=== PATIENT | female | born 1945 | race Caucasian/White ===

== ENCOUNTER 2016-07-20 15:10 | Outpatient (CLI) | payer MEDICARE ==
--- NOTE | 2016-07-21 08:56 | XRAY Report ---
THREE-VIEW LUMBAR SPINE: 07/20/2016 CLINICAL INDICATION: Bilateral sciatica. FINDINGS: AP, lateral, coned-down views of the lumbar spine demonstrate anterior wedge compression d eformities of T11, L1, and L3, with approximately 50% anterior height loss of T11, 20% anterior heigh t loss of L1, and 40% anterior height loss of L3. Degenerative disc and facet disease is present. T here is partial sacralization of L5, with bilateral pseudoarthrosis formations. Surgical clips from cholecystectomy are noted. IMPRESSION: MODERATE DEGENERATIVE CHANGES. MULTILEVEL COMPRESSION DEFORMITIES. JOB #: [id number] EXT JOB #:[id number]
== END 2016-07-20 15:11 | disposition home or self-care (01) ==
LOC: DI.S 15:10
PROVIDERS: ATTEND Nurse Practitioner Family
DX: M51.16 Intervertebral disc disorders with radiculopathy, lumbar region (principal); M47.816 Spondylosis without myelopathy or radiculopathy, lumbar region; M43.8X6 Other specified deforming dorsopathies, lumbar region
CPT/HCPCS: 72100

== ENCOUNTER 2016-08-12 13:32 | Outpatient (CLI) | payer MEDICARE | END 2016-08-12 13:33 | disposition home or self-care (01) | DX: E87.8 Other disorders of electrolyte and fluid balance, not elsewhere classified (principal); E78.5 Hyperlipidemia, unspecified ==

== ENCOUNTER 2016-10-17 11:32 | Outpatient (CLI) | payer MEDICARE | END 2016-10-17 11:33 | DX: K92.1 Melena (principal); E78.5 Hyperlipidemia, unspecified ==

== ENCOUNTER 2016-11-09 11:08 | Outpatient (CLI) | payer MEDICARE ==
--- NOTE | 2016-11-11 13:53 | Mammography Report ---
DIGITAL SCREENING MAMMOGRAM: 11/09/2016 CLINICAL INDICATION: A 71-year-old for screening. COMPARISON: 06/2015, 06/2014, 08/2011, 07/2011, 07/2010, 07/2009. TECHNIQUE: Routine CC and MLO projections were obtained of the breasts. FINDINGS: Parenchymal tissue within the breasts is predominantly fatty replaced. There are no domina nt masses, suspicious microcalcifications, or secondary signs of malignancy. In comparison to the pre vious studies, there are no significant changes. IMPRESSION: NO MAMMOGRAPHIC EVIDENCE OF MALIGNANCY. NO SIGNIFICANT INTERVAL CHANGES. RECOMMENDATION: Screening mammography is recommended annually. BI-RADS category 1 - negative. STANDARD QUALIFYING STATEMENTS 1. This examination was reviewed with the aid of Computed-Aided Detection (CAD). 2. A negative or benign imaging report should not delay biopsy if clinically suspicious findings are present. Consider surgical consultation if warranted. More than 5% of cancers are not identified by i maging. 3. Dense breasts may obscure an underlying neoplasm. JOB #: [id number] EXT JOB #:[id number]
== END 2016-11-09 11:09 | disposition home or self-care (01) ==
LOC: DI.S 11:08
PROVIDERS: ATTEND Nurse Practitioner Family
DX: Z12.31 Encounter for screening mammogram for malignant neoplasm of breast (principal)
CPT/HCPCS: 77067

== ENCOUNTER 2016-12-01 13:51 | Outpatient (CLI) | payer MEDICARE ==
[2016-12-01 17:31] LABS: BILIRUBIN,URINE NEGATIVE (NEGATIVE); PH,URINE 7.5 PH (5.0-7.5)
[2016-12-01 17:40] LABS: UR CULTURE IF IND INDICATED
== END 2016-12-01 13:52 | disposition home or self-care (01) ==
LOC: LAB.R 13:51
PROVIDERS: ATTEND Nurse Practitioner Family
DX: R31.9 Hematuria, unspecified (principal)
CPT/HCPCS: 81001; 87077; 87086

== ENCOUNTER 2017-03-29 10:15 | Outpatient (CLI) | payer MEDICARE ==
--- NOTE | 2017-03-29 12:01 | Ultrasound Report ---
ULTRASOUND PALPABLE ABNORMALITY RIGHT AXILLA: 03/29/2017 CLINICAL INDICATION: Palpable abnormality. TECHNIQUE: Real-time scanning was performed with financial service representative static images obtained. FINDINGS: Ultrasound of the palpable abnormality identified by the patient was performed. At this s ite, there is a subcutaneous lipoma, measuring 6.3 x 5.8 x 1.5 cm. No sonographically suspicious fin dings are seen. IMPRESSION: SUBCUTANEOUS LIPOMA ACCOUNTING FOR THE PALPABLE ABNORMALITY. JOB #: [id number] EXT JOB #:[id number]
== END 2017-03-29 10:16 | disposition home or self-care (01) ==
LOC: DI 10:15
PROVIDERS: ATTEND Nurse Practitioner Family
DX: D17.1 Benign lipomatous neoplasm of skin and subcutaneous tissue of trunk (principal)
CPT/HCPCS: 76642

== ENCOUNTER 2017-12-18 10:58 | Outpatient (CLI) | payer MEDICARE ==
[2017-12-18 17:28] LABS: BASOPHILS % (AUTO) 0.7 %; EOSINOPHILS # (AUTO) 0.2 10^3/uL (0.0-0.7); EOSINOPHILS % (AUTO) 2.4 %; HGB - HEMOGLOBIN 14.7 g/dL (12.0-16.0); LYMPHOCYTES % (AUTO) 27.6 %; MEAN CORPUSCULAR HEMOGLOBIN 32.2 pg (27.0-31.0); MEAN CORPUSCULAR HGB CONC 33.4 g/dL (32.0-36.0); MEAN CORPUSCULAR VOLUME 96.6 fL (81.0-99.0); MEAN PLATELET VOLUME 7.9 fL (7.9-10.8); MONOCYTES # (AUTO) 0.6 10^3/uL (0.0-1.0); MONOCYTES % (AUTO) 9.1 %; NEUTROPHILS # (AUTO) 4.3 10^3/uL (1.5-6.6); NEUTROPHILS % (AUTO) 60.2 %; PLT - PLATELET COUNT 367 10^3/uL (130-450); RED BLOOD COUNT 4.56 10^6/uL (4.20-5.40); RED CELL DISTRIBUTION WIDTH 13.7 % (12.0-15.0); WHITE BLOOD COUNT 7.1 x10^3/uL (4.8-10.8)
[2017-12-18 17:45] LABS: ALBUMIN 3.6 g/dL (3.2-5.5); ALBUMIN/GLOBULIN RATIO 1.3 (1.0-2.2); ALKALINE PHOSPHATASE 64 IU/L (42-121); ALT ALANINE AMINOTRANSFERASE 31 IU/L (10-60); AST ASPARTATE AMINOTRANSFERASE 27 IU/L (10-42); BILIRUBIN,TOTAL 0.5 mg/dL (0.2-1.0); BUN - BLOOD UREA NITROGEN 12 mg/dL (6-20); CALCIUM 8.6 mg/dL (8.5-10.3); CARBON DIOXIDE - CO2 26 mmol/L (21-32); CHLORIDE 105 mmol/L (101-111); CHOL/HDL RATIO 2.4 (<4.4); CHOLESTEROL 143 mg/dL; CREATININE 0.7 mg/dL (0.4-1.0); GFR - MDRD 82 (>89); GLUCOSE 94 mg/dL (70-100); HDL CHOLESTEROL 59 mg/dL; LDL CHOLESTEROL,CALCULATED 69 mg/dL; LDL/HDL RATIO 1.2 (<4.4); SODIUM 136 mmol/L (135-145); TOTAL PROTEIN 6.3 g/dL (6.7-8.2); VLDL CHOLESTEROL 15 mg/dL
== END 2017-12-18 10:59 | disposition home or self-care (01) ==
LOC: LAB.S 10:58
PROVIDERS: ATTEND Nurse Practitioner Family
DX: Z13.228 Encounter for screening for other metabolic disorders (principal); E78.5 Hyperlipidemia, unspecified; Z13.29 Encounter for screening for other suspected endocrine disorder
CPT/HCPCS: 36415; 80053; 80061; 83721; 84443; 85025

== ENCOUNTER 2018-11-14 08:00 | Outpatient (CLI) | payer MEDICARE | END 2018-11-14 23:59 | disposition home or self-care (01) | LOC: LAB.R 08:00 | PROVIDERS: ATTEND Physician Assistant Medical | DX: N39.0 Urinary tract infection, site not specified (principal) | CPT/HCPCS: 87086 ==

== ENCOUNTER 2018-11-23 08:00 | Outpatient (CLI) | payer MEDICARE ==
[2018-11-23 17:37] LABS: BASOPHILS % (AUTO) 0.8 %; EOSINOPHILS # (AUTO) 0.3 10^3/uL (0.0-0.7); HGB - HEMOGLOBIN 14.4 g/dL (12.0-16.0); LYMPHOCYTES # (AUTO) 1.7 10^3/uL (1.5-3.5); LYMPHOCYTES % (AUTO) 29.7 %; MEAN CORPUSCULAR HEMOGLOBIN 31.8 pg (27.0-31.0); MEAN CORPUSCULAR HGB CONC 33.4 g/dL (32.0-36.0); MEAN CORPUSCULAR VOLUME 95.2 fL (81.0-99.0); MEAN PLATELET VOLUME 7.8 fL (7.9-10.8); MONOCYTES # (AUTO) 0.6 10^3/uL (0.0-1.0); NEUTROPHILS # (AUTO) 3.1 10^3/uL (1.5-6.6); NEUTROPHILS % (AUTO) 54.5 %; PLT - PLATELET COUNT 369 10^3/uL (130-450); RED BLOOD COUNT 4.53 10^6/uL (4.20-5.40); RED CELL DISTRIBUTION WIDTH 13.4 % (12.0-15.0); WHITE BLOOD COUNT 5.8 x10^3/uL (4.8-10.8)
[2018-11-23 18:06] LABS: ALBUMIN 3.7 g/dL (3.2-5.5); ALBUMIN/GLOBULIN RATIO 1.5 (1.0-2.2); ALKALINE PHOSPHATASE 70 IU/L (42-121); ALT ALANINE AMINOTRANSFERASE 28 IU/L (10-60); AST ASPARTATE AMINOTRANSFERASE 27 IU/L (10-42); BILIRUBIN,TOTAL 0.6 mg/dL (0.2-1.0); BUN - BLOOD UREA NITROGEN 16 mg/dL (6-20); CALCIUM 8.6 mg/dL (8.5-10.3); CARBON DIOXIDE - CO2 22 mmol/L (21-32); CHLORIDE 106 mmol/L (101-111); CHOL/HDL RATIO 2.7 (<4.4); CHOLESTEROL 133 mg/dL; CREATININE 0.7 mg/dL (0.4-1.0); GFR - MDRD 82 (>89); GLUCOSE 94 mg/dL (70-100); HDL CHOLESTEROL 50 mg/dL; LDL CHOLESTEROL,CALCULATED 71 mg/dL; LDL/HDL RATIO 1.4 (<4.4); SODIUM 136 mmol/L (135-145); TOTAL PROTEIN 6.2 g/dL (6.7-8.2); VLDL CHOLESTEROL 12 mg/dL
[2018-11-23 19:47] LABS: HB2 TOTAL 15.4 g/dL; HEMOGLOBIN A1C 0.6 g/dL; HEMOGLOBIN A1C % 5.7 % (4.6-6.2)
== END 2018-11-23 08:01 | disposition home or self-care (01) ==
LOC: LAB.F 08:00
PROVIDERS: ATTEND Physician Assistant Medical
DX: E78.5 Hyperlipidemia, unspecified (principal); Z51.81 Encounter for therapeutic drug level monitoring; R73.01 Impaired fasting glucose
CPT/HCPCS: 36415; 80053; 80061; 81599; 83036; 83721; 85025

== ENCOUNTER 2018-11-28 16:11 | Outpatient (CLI) | payer MEDICARE | END 2018-11-28 23:59 | disposition home or self-care (01) | LOC: LAB.R 16:11 | PROVIDERS: ATTEND Physician Assistant Medical | DX: R31.9 Hematuria, unspecified (principal); N39.0 Urinary tract infection, site not specified | CPT/HCPCS: 87086; 87181 ==

== ENCOUNTER 2019-01-14 09:52 | Outpatient (CLI) | payer MEDICARE ==
--- NOTE | 2019-01-15 08:57 | Mammography Report ---
Reason: SCREENING MAMMO Procedure Date: 01/14/2019 Accession Number: [id number] / [id number] Procedure: MGS - Screening Mammo Dig Bilat CPT Code: FULL RESULT: EXAM: Screening Mammo Dig Bilat DATE: 01/14/2019 10:16 AM CLINICAL HISTORY: Screening encounter. History of early menses. TECHNIQUE: (B) - Bilateral CC and MLO views were obtained. COMPARISON: 11/09/2016 through 08/04/2011. PARENCHYMAL PATTERN: (A) - The breast(s) demonstrate(s) scattered fibroglandular densities. FINDINGS: There are no suspicious masses, calcifications, or areas of distortion. IMPRESSION: Negative examination. BI-RADS category 1. RECOMMENDATION: (ANNUAL) - Recommend routine annual screening mammography. BI-RADS CATEGORY: (1) - Negative. STANDARD QUALIFYING STATEMENTS: 1. This examination was reviewed with the aid of Computer-Aided Detection (CAD). 2. A negative or benign imaging report should not preclude biopsy if clinically suspicious findings are present. 3. Dense breasts may obscure an underlying neoplasm. 4. This examination was reviewed without the aid of 3D breast imaging (tomosynthesis).
== END 2019-01-14 09:53 | disposition home or self-care (01) ==
LOC: DI.S 09:52
PROVIDERS: ATTEND Physician Assistant Medical
DX: Z12.31 Encounter for screening mammogram for malignant neoplasm of breast (principal)
CPT/HCPCS: 77067

== ENCOUNTER 2019-06-17 13:59 | Outpatient (CLI) | payer MEDICARE | END 2019-06-17 14:00 | disposition home or self-care (01) | LOC: LAB.S 13:59 | PROVIDERS: ATTEND Physician Assistant Medical | DX: Z53.9 Procedure and treatment not carried out, unspecified reason (principal) ==

== ENCOUNTER 2019-06-18 08:00 | Outpatient (CLI) | payer MEDICARE ==
[2019-06-18 18:19] LABS: HB2 TOTAL 14.6 g/dL; HEMOGLOBIN A1C 0.61 g/dL
== END 2019-06-18 23:59 | disposition home or self-care (01) ==
LOC: LAB.S 08:00
PROVIDERS: ATTEND Physician Assistant Medical
DX: R73.01 Impaired fasting glucose (principal)
CPT/HCPCS: 36415; 83036

== ENCOUNTER 2019-07-04 08:00 | Outpatient (CLI) | payer MEDICARE | END 2019-07-04 08:01 | disposition home or self-care (01) | LOC: LAB 08:00 | PROVIDERS: ATTEND Physician Assistant Medical | DX: Z12.11 Encounter for screening for malignant neoplasm of colon (principal) | CPT/HCPCS: 82274 ==

== ENCOUNTER 2020-03-03 09:06 | Outpatient (CLI) | payer MEDICARE ==
[2020-03-03 15:09] LABS: BASOPHILS # (AUTO) 0.1 10^3/uL (0.0-0.1); BASOPHILS % (AUTO) 0.9 %; EOSINOPHILS # (AUTO) 0.1 10^3/uL (0.0-0.7); EOSINOPHILS % (AUTO) 1.6 %; HGB - HEMOGLOBIN 14.2 g/dL (12.0-16.0); LYMPHOCYTES # (AUTO) 1.8 10^3/uL (1.5-3.5); LYMPHOCYTES % (AUTO) 24.1 %; MEAN CORPUSCULAR HEMOGLOBIN 31.6 pg (27.0-31.0); MEAN CORPUSCULAR HGB CONC 32.1 g/dL (32.0-36.0); MEAN CORPUSCULAR VOLUME 98.7 fL (81.0-99.0); MEAN PLATELET VOLUME 9.6 fL (7.9-10.8); MONOCYTES # (AUTO) 0.7 10^3/uL (0.0-1.0); MONOCYTES % (AUTO) 8.8 %; NEUTROPHILS # (AUTO) 4.8 10^3/uL (1.5-6.6); NEUTROPHILS % (AUTO) 64.2 %; PLT - PLATELET COUNT 372 10^3/uL (130-450); RED BLOOD COUNT 4.49 10^6/uL (4.20-5.40); RED CELL DISTRIBUTION WIDTH 13.2 % (12.0-15.0); WHITE BLOOD COUNT 7.5 x10^3/uL (4.8-10.8)
[2020-03-03 15:46] LABS: ALBUMIN 3.7 g/dL (3.2-5.5); ALBUMIN/GLOBULIN RATIO 1.7 (1.0-2.2); ALKALINE PHOSPHATASE 70 IU/L (42-121); ALT ALANINE AMINOTRANSFERASE 31 IU/L (10-60); AST ASPARTATE AMINOTRANSFERASE 27 IU/L (10-42); BILIRUBIN,TOTAL 0.6 mg/dL (0.2-1.0); BUN - BLOOD UREA NITROGEN 17 mg/dL (6-20); CALCIUM 8.5 mg/dL (8.5-10.3); CARBON DIOXIDE - CO2 27 mmol/L (21-32); CHLORIDE 107 mmol/L (101-111); CHOL/HDL RATIO 2.2 (<4.4); CHOLESTEROL 139 mg/dL; CREATININE 0.7 mg/dL (0.4-1.0); GLUCOSE 100 mg/dL (70-100); HDL CHOLESTEROL 62 mg/dL; LDL CHOLESTEROL,CALCULATED 66 mg/dL; LDL/HDL RATIO 1.1 (<4.4); SODIUM 140 mmol/L (135-145); TOTAL PROTEIN 5.9 g/dL (6.7-8.2); VLDL CHOLESTEROL 11 mg/dL
== END 2020-03-03 09:07 | disposition home or self-care (01) ==
LOC: LAB.S 09:06
PROVIDERS: ATTEND Physician Assistant
DX: Z00.00 Encounter for general adult medical examination without abnormal findings (principal); Z12.11 Encounter for screening for malignant neoplasm of colon; Z13.1 Encounter for screening for diabetes mellitus; E78.5 Hyperlipidemia, unspecified; F41.8 Other specified anxiety disorders; Z65.8 Other specified problems related to psychosocial circumstances
CPT/HCPCS: 36415; 80053; 80061; 83721; 84443; 85025

== ENCOUNTER 2020-03-04 08:00 | Outpatient (CLI) | payer MEDICARE | END 2020-03-04 23:59 | disposition home or self-care (01) | LOC: LAB.R 08:00 | PROVIDERS: ATTEND Physician Assistant | DX: Z00.00 Encounter for general adult medical examination without abnormal findings (principal); Z12.11 Encounter for screening for malignant neoplasm of colon | CPT/HCPCS: 82274 ==

== ENCOUNTER 2020-12-02 10:55 | Outpatient (CLI) | payer MEDICARE ==
--- NOTE | 2020-12-03 14:23 | Mammography Report ---
BILATERAL DIGITAL SCREENING MAMMOGRAM 3D/2D: 12/02/2020 CLINICAL: Routine screening. Comparison is made to exams dated: 01/14/2019 mammogram, 11/09/2016 mammogram, 07/07/2015 mammogram, and 06/24/2014 mammogram - [facility]. There are scattered fibroglandular elements in both breasts. No significant masses, calcifications, or other findings are seen in either breast. There has been no significant interval change. IMPRESSION: NEGATIVE There is no mammographic evidence of malignancy. A 1 year screening mammogram is recommended. This exam was interpreted at Station ID: [id number]. NOTE: For mammograms, a report in lay terms will be sent to the patient. Approximately 15% of breast malignancies will not be visualized mammographically. In the management of a palpable breast mass, a negative mammogram must not discourage biopsy of a clinically suspicious lesion. Electronically Signed By: Ryan Gomez M.D. slc/penrad:12/02/2020 15:24:54 ACR BI-RADS Category 1: Negative 3341F PARENCHYMAL PATTERN: (A) - The breast(s) demonstrate(s) scattered fibroglandular densities. BI-RADS CATEGORY: (1) - 1 RECOMMENDATION: (ANNUAL) - Recommend routine annual screening mammography. [id number] 1 year screening LATERALITY: (B)
== END 2020-12-02 10:56 | disposition home or self-care (01) ==
LOC: DI.S 10:55
PROVIDERS: ATTEND Nurse Practitioner Family
DX: Z12.31 Encounter for screening mammogram for malignant neoplasm of breast (principal)

== ENCOUNTER 2022-01-05 10:51 | Outpatient (CLI) | payer MEDICARE ==
--- NOTE | 2022-01-06 09:36 | Mammography Report ---
BILATERAL DIGITAL SCREENING MAMMOGRAM 3D/2D: 01/05/2022 CLINICAL: Routine screening. Comparison is made to exams dated: 12/02/2020 mammogram, 01/14/2019 mammogram, 11/09/2016 mammogram, and 07/07/2015 mammogram - [facility]. There are scattered fibroglandular elements in both breasts. No significant masses, calcifications, or other findings are seen in either breast. There has been no significant interval change. IMPRESSION: NEGATIVE There is no mammographic evidence of malignancy. A 1 year screening mammogram is recommended. Based on the Tyrer Cuzick model (a risk assessment model) the patients lifetime risk is 2.5% and her 10 year risk is 2.5%. According to the ACR, ACS, and NCCN guidelines, an annual breast MRI exam stef g with mammogram is recommended if the patients lifetime risk is 20% or greater. This exam was interpreted at Station ID: [id number]. NOTE: For mammograms, a report in lay terms will be sent to the patient. Approximately 15% of breast malignancies will not be visualized mammographically. In the management of a palpable breast mass, a negative mammogram must not discourage biopsy of a clinically suspicious lesion. Electronically Signed By: Ryan steinberg/penrad:01/05/2022 15:25:54 ACR BI-RADS Category 1: Negative 3341F PARENCHYMAL PATTERN: (A) - The breast(s) demonstrate(s) scattered fibroglandular densities. BI-RADS CATEGORY: (1) - 1 RECOMMENDATION: (ANNUAL) - Recommend routine annual screening mammography. [id number] 1 year screening LATERALITY: (B)
== END 2022-01-05 10:52 | disposition home or self-care (01) ==
LOC: DI.S 10:51
PROVIDERS: ATTEND Nurse Practitioner Family
DX: Z12.31 Encounter for screening mammogram for malignant neoplasm of breast (principal)

== ENCOUNTER 2022-03-08 06:24 | Day surgery (SDC) | payer MEDICARE ==
[2022-03-08] MEDS ORDERED: LACTATED RINGERS 1,000 ML IV ONE ×2 (06:28→07:57)
--- NOTE | 2022-03-08 07:02 | ANESTHESIA ---
Pre-Anesthesia VS, & Labs - Diagnosis positive fit test - Procedure colonoscopy Vital Signs: Temp Pulse Resp BP Pulse Ox O2 Flow Rate 36.6 C 91 16 146/79 H 97 0 03/08/22 06:46 03/08/22 06:46 03/08/22 06:46 03/08/22 06:46 03/08/22 06:46 03/08/22 06:46 Height: 4 ft 11 in Weight (kg): 61.7 kg Body Mass Index: 27.4 BMI Classification: Overweight - NPO >8 hours - Is Patient ?: No - Lab Results Lab results reviewed: Yes Home Medications and Allergies Home Medications: Ambulatory Orders Atorvastatin [Lipitor] 1 tab PO DAILY 03/07/22 Loratadine [Claritin] 1 tab PO PRN PRN 03/07/22 Triazolam 1 tab PO DAILY 03/07/22 busPIRone [Buspar] 1 tab PO DAILY 03/07/22 Atorvastatin [Lipitor] 1 tab PO DAILY 03/07/22 Loratadine [Claritin] 1 tab PO PRN PRN 03/07/22 Triazolam 1 tab PO DAILY 03/07/22 busPIRone [Buspar] 1 tab PO DAILY 03/07/22 Allergies/Adverse Reactions: Allergies Allergy/AdvReac Type Severity Reaction Status Date / Time No Known Drug Allergies Allergy Verified 03/07/22 11:24 Anes History & Medical History - Anesthetic History Anesthesia Complications: reports: No previous complications Family history of Anesthesia Complications: Denies Family history of Malignant Hyperthermia: Denies - Medical History Cardiovascular: reports: None Pulmonary: reports: Asthma Gastrointestinal: reports: None Urinary: reports: Chronic bladder infection Musculoskeletal: reports: None Endocrine/Autoimmune: reports: None Skin: reports: None - Surgical History General: reports: Cholecystectomy Gynecologic: reports: Hysterectomy, Oophrectomy Exam General: Alert, Oriented x3, Cooperative Mouth Openin Fingerbreadth Neck Mobility: Normal Mallampati classification: II Respiratory: Lungs clear Cardiovascular: Regular rate Neurological: Normal speech Mental/Cognitive Status: Alert/Oriented X3, Normal for patient Cognitive Status: Within normal limits Plan Anesthesia Type: Total IV Consent for Procedure(s) Verified and Reviewed: Yes Code Status: Attempt Resuscitation ASA classification: 2-Mild systemic disease Is this case an emergency?: No
[2022-03-08] MEDS ORDERED: PROPOFOL 500 MG/50 ML 500 MG/50 ML VIAL ONE (07:06)
--- NOTE | 2022-03-08 08:07 | ANESTHESIA POST OP EVALUATION ---
Anesthesia Post Eval - Post Anesthesia Eval Vitals: Last Vital Signs Temp 37.5 C 03/08/22 07:57 Pulse 75 03/08/22 08:03 Resp 20 03/08/22 08:03 BP 111/63 03/08/22 08:03 Pulse Ox 100 03/08/22 08:03 O2 Flow Rate 0 03/08/22 06:46 CV Function Including HR & BP: Stable Pain Control: Satisfactory Nausea & Vomiting: Negative Mental Status: Baseline Respiratory Status: Airway Patent Hydration Status: Satisfactory Anesthesia Complications: None
[2022-03-08 08:20] VITALS: BP 127/65
== END 2022-03-08 06:25 | disposition home or self-care (01) ==
LOC: SDS 06:24
PROVIDERS: ATTEND Surgery
DX: R19.5 Other fecal abnormalities (principal); K59.00 Constipation, unspecified; K57.31 Diverticulosis of large intestine without perforation or abscess with bleeding; K64.8 Other hemorrhoids; K64.4 Residual hemorrhoidal skin tags; J45.909 Unspecified asthma, uncomplicated
CPT/HCPCS: 45378; J7120

== ENCOUNTER 2022-07-13 12:28 | Outpatient (CLI) | payer MEDICARE ==
--- NOTE | 2022-07-13 16:49 | Ultrasound Report ---
PROCEDURE: Pelvic Limited or F/U INDICATIONS: GROIN MASS TECHNIQUE: Real-time transabdominal scanning was performed of the inguinal region, with image documentation. COMPARISON: None. FINDINGS: There is a left inguinal region fascial defect measuring 2.1 x 1.7 cm. Fat protrudes through this def ect at rest. During Valsalva maneuver, loop of bowel protrudes through the defect, easily reducible w ith relaxation. IMPRESSION: Fat and bowel containing, reducible, left inguinal hernia. Reviewed by: Lizzette Hawkins MD on 07/13/2022 4:48 PM PST Approved by: Lizzette Hawkins MD on 07/13/2022 4:48 PM PST Station ID: [id number]
== END 2022-07-13 12:29 | disposition home or self-care (01) ==
LOC: DI 12:28
PROVIDERS: ATTEND Nurse Practitioner Family
DX: K40.90 Unilateral inguinal hernia, without obstruction or gangrene, not specified as recurrent (principal)

== ENCOUNTER 2023-02-09 09:52 | Day surgery (SDC) | payer MEDICARE, MEDICAID ==
[~2023-02-09 09:52] MED LIST: BUPIVACAINE 0.25% PF 30 ML VIAL ONE
[2023-02-09] MEDS ORDERED: ceFAZolin 2 GM VIAL ONE (09:58)
[2023-02-09] MEDS ORDERED: LACTATED RINGERS 1,000 ML IV ONE ×2 (10:18→13:25)
[2023-02-09] MEDS ORDERED: fentaNYL 100 MCG/2 ML VIAL IVP PRN (10:38)
[2023-02-09] MEDS ORDERED: ePHEDrine 50 MG/ML VIAL IVP PRN (10:38)
[2023-02-09] MEDS ORDERED: NALOXONE 0.4 MG/ML VIAL IVP PRN (10:38)
[2023-02-09] MEDS ORDERED: ATROPINE ABBOJECT 1 MG/10 ML SYRINGE IVP PRN (10:38)
[2023-02-09] MEDS ORDERED: ONDANSETRON 4 MG/2 ML VIAL IVP PRN (10:38)
[2023-02-09] MEDS ORDERED: HYDROmorphone 0.5 MG/0.5 ML SYRINGE IVP PRN (10:38)
--- NOTE | 2023-02-09 10:38 | ANESTHESIA ---
Pre-Anesthesia VS, & Labs - Diagnosis L inguinal hernia - Procedure Open l inguinal hernia repair Vital Signs: Temp Pulse Resp BP Pulse Ox O2 Flow Rate 35.8 C L 84 11 L 153/73 H 96 0 02/09/23 10:19 02/09/23 10:19 02/09/23 10:19 02/09/23 10:19 02/09/23 10:19 02/09/23 10:19 Height: 4 ft 11 in Weight (kg): 64 kg Body Mass Index: 28.5 BMI Classification: Overweight - NPO >8 hours - Is Patient ?: No - Lab Results Lab results reviewed: Yes Home Medications and Allergies Home Medications: Ambulatory Orders Albuterol Sulf [Ventolin Hfa Inhaler] 2 puffs PO Q4HR PRN 02/06/23 Atorvastatin Calcium 40 mg PO DAILY 02/06/23 Fluticasone [Flonase] 1 sprays KHURRAM BID PRN 02/06/23 Sumatriptan Succinate [Imitrex] 100 mg PO DAILY PRN 02/06/23 Loratadine [Claritin] 10 mg PO DAILY 02/08/23 Sennosides [Senna] 8.6 mg PO PRN PRN 02/08/23 Sertraline [Zoloft] 50 mg PO DAILY 02/08/23 busPIRone [Buspar] 7.5 mg PO DAILY 03/07/22 Albuterol Sulf [Ventolin Hfa Inhaler] 2 puffs PO Q4HR PRN 02/06/23 Atorvastatin Calcium 40 mg PO DAILY 02/06/23 Fluticasone [Flonase] 1 sprays KHURRAM BID PRN 02/06/23 Sumatriptan Succinate [Imitrex] 100 mg PO DAILY PRN 02/06/23 Loratadine [Claritin] 10 mg PO DAILY 02/08/23 Sennosides [Senna] 8.6 mg PO PRN PRN 02/08/23 Sertraline [Zoloft] 50 mg PO DAILY 02/08/23 Allergies/Adverse Reactions: Allergies Allergy/AdvReac Type Severity Reaction Status Date / Time No Known Drug Allergies Allergy Verified 02/09/23 10:24 Anes History & Medical History - Anesthetic History Anesthesia Complications: reports: Post-Operative Nausea/Vomiting Family history of Anesthesia Complications: Denies Family history of Malignant Hyperthermia: Denies - Medical History Cardiovascular: reports: High cholesterol Pulmonary: reports: Asthma Gastrointestinal: reports: None Urinary: reports: Chronic bladder infection Musculoskeletal: reports: None Endocrine/Autoimmune: reports: None Skin: reports: None Psychosocial: reports: Cannabis - Surgical History General: reports: Cholecystectomy, Other Gynecologic: reports: section, Hysterectomy Exam General: Alert, Oriented x3, Cooperative Dental: WNL Mouth Openin Fingerbreadth Neck Mobility: Normal Mallampati classification: II Thyromental Distance: 4-6 cm Respiratory: Lungs clear Cardiovascular: Regular rate Plan Anesthesia Type: General, MAC Consent for Procedure(s) Verified and Reviewed: Yes Code Status: Attempt Resuscitation ASA classification: 2-Mild systemic disease Is this case an emergency?: No
[2023-02-09] MEDS ORDERED: LACTATED RINGERS 1,000 ML IV SCH (11:00)
[2023-02-09] MEDS ORDERED: LIDOCAINE-MPF 1% 30 ML VIAL ONE (11:26)
[2023-02-09] MEDS ORDERED: PROPOFOL 500 MG/50 ML 500 MG/50 ML VIAL ONE (11:26)
[2023-02-09] MEDS ORDERED: fentaNYL 100 MCG/2 ML VIAL ONE (11:26)
--- NOTE | 2023-02-09 11:44 | HISTORY & PHYSICAL EXAMINATION ---
Chief Complaint - Chief Complaint Chief Complaint: left groin bulge History of Present Illness - History Obtained From Records Reviewed: yes History obtained from: pt Exam Limitations: none - History of Present Illness HPI Comment/Other: left inguinal hernia. getting worse History - Past Medical History Cardiovascular: reports: High cholesterol Respiratory: reports: Asthma Endocrine/Autoimmune: reports: None GI: reports: None : reports: Chronic bladder infection HEENT: reports: Chronic sinusitis Psych: reports: Depression Musculoskeletal: reports: None Derm: reports: None MRSA Hx?: No - Past Surgical History General: reports: Cholecystectomy, Other /[employer]: reports: section, Hysterectomy Meds/Allgy - Home Medications Home Medications: Ambulatory Orders Medication Instructions Recorded Confirmed busPIRone [Buspar] 7.5 mg PO DAILY 03/07/22 03/07/22 Albuterol Sulf [Ventolin Hfa 2 puffs PO Q4HR PRN 02/06/23 02/06/23 Inhaler] Atorvastatin Calcium 40 mg PO DAILY 02/06/23 02/06/23 Fluticasone [Flonase] 1 sprays KHURRAM BID PRN 02/06/23 02/06/23 Sumatriptan Succinate [Imitrex] 100 mg PO DAILY PRN 02/06/23 02/06/23 Loratadine [Claritin] 10 mg PO DAILY 02/08/23 02/08/23 Sennosides [Senna] 8.6 mg PO PRN PRN 02/08/23 02/08/23 Sertraline [Zoloft] 50 mg PO DAILY 02/08/23 02/08/23 - Allergies Allergies/Adverse Reactions: Allergies Allergy/AdvReac Type Severity Reaction Status Date / Time No Known Drug Allergies Allergy Verified 02/09/23 10:24 Review of Systems - Other Findings Other Findings: 10 pt ros as above otherwise unremarkable Exam - Vital Signs Vital Signs: Vital Signs x48h Temp Pulse Resp BP Pulse Ox O2 Flow Rate 02/09/23 10:19 35.8 C L 84 11 L 153/73 H 96 0 - Physical Exam General Appearance: positive: No acute distress, Alert Eyes Bilateral: positive: PERRL, EOMI ENT: positive: No signs of dehydration Neck: positive: No JVD, Trachea midline Respiratory: positive: No respiratory distress Cardiovascular: positive: Regular rate & rhythm Abdomen: positive: Other (left inguinal hernia present) Neurologic/Psychiatric: positive: Oriented x3 Conclusion/Plan - Problem List (1) Inguinal hernia Conclusion/Plan: plan open repair with mesh. no femoral hernia and risk developing one is very low parq held and consent obtained - Lab Results Lab results reviewed: Yes
[2023-02-09] MEDS ORDERED: BUPIVACAINE 0.25% PF 30 ML VIAL SUBQ ONE ×2 (12:36)
[2023-02-09] MEDS ORDERED: LIDOCAINE 1% 50 ML MDV SUBQ ONE (12:36)
[2023-02-09] MEDS ORDERED: PROPOFOL 200 MG/20 ML VIAL IVP ONE (13:00)
[2023-02-09] MEDS ORDERED: ONDANSETRON 4 MG/2 ML VIAL ONE (13:10)
[2023-02-09] MEDS ORDERED: HYDROcod/ACETAM 5/325 MG TABLET PO PRN (13:32)
[2023-02-09 13:50] VITALS: BP 151/64
[2023-02-09 14:10] VITALS: O2SAT 98
--- NOTE | 2023-02-09 15:54 | ANESTHESIA POST OP EVALUATION ---
Anesthesia Post Eval - Post Anesthesia Eval Vitals: Last Vital Signs Temp 36.0 C L 02/09/23 13:25 Pulse 69 02/09/23 14:00 Resp 18 02/09/23 14:00 BP 151/64 H 02/09/23 14:00 Pulse Ox 98 02/09/23 14:00 O2 Flow Rate 0 02/09/23 10:19 CV Function Including HR & BP: Stable Pain Control: Satisfactory Nausea & Vomiting: Negative Mental Status: Baseline Respiratory Status: Airway Patent Hydration Status: Satisfactory Anesthesia Complications: None
--- NOTE | 2023-02-09 16:07 | OPERATIVE REPORT ---
Operative Report - General Procedure Date: 02/09/23 Planned Procedure: open left inguinal hernia repair Pre-Op Diagnosis: left inguinal hernia Procedure Performed: open left inguinal hernia repair with mesh Post Op Diagnosis: left inguinal hernia - Procedure Note Primary Surgeon: lucia sanchez Anesthesia Technique: Local, MAC Pathology: tissue not sent Estimated Blood Loss (mL): 2 Drain/Tube Type: Other (none) Indications: painful hernia bulge Findings: indirect and direct Complications: The patient was properly notified brought to the operating room and placed in supine position. Monitored anesthesia care was given. Sedation was given. She was prepped and draped in a sterile fashion and given preoperative antibiotics. A 5 cm incision was made in the direction of Abel's lines directly overlying the marked area of the hernia. Dissection proceeded with cutting current. The superficial epigastric vein was identified clamped tied with 3-0 Vicryl and divided. Local anesthetic was given throughout the procedure. Dissection proceeded down to the aponeurosis. Aponeurosis was opened in the direction of its fibers and extended to the external ring. The round ligament was mobilized and brought up. The ilioinguinal nerve was cut at musculature and removed. Preperitoneal adipose tissue was mobilized clamped and tied with 2-0 silk and divided. The round ligament and indirect hernia sac was further mobilized back to the internal ring. It was clamped and suture-ligated with a 2-0 silk. The remainder of the round ligament was removed with cautery. Polypropylene mesh was then cut to size and without tails. It was secured to the pubic tubercle along the shelving border of Poupart's ligament and medially along the musculature fascia of the internal oblique. Multiple interrupted 0 Ethibond sutures were used. The mesh lay in good position without tension. Aponeurosis was closed with a running 2-0 Vicryl suture. Liliana's was closed with interrupted 3-0 Vicryl suture. Buried interrupted subdermal 3-0 Vicryl sutures were then placed. Skin was closed with a running 4-0 Monocryl subcuticular suture. Dressing was applied. She tolerated the procedure very well. - Other Other Information/Narrative: The patient was properly notified brought to the operating room and placed in supine position. Monitored anesthesia care was given. Sedation was given. She was prepped and draped in a sterile fashion and given preoperative antibiotics. A 5 cm incision was made in the direction of Abel's lines directly overlying the marked area of the hernia. Dissection proceeded with cutting current. The superficial epigastric vein was identified clamped tied with 3-0 Vicryl and divided. Local anesthetic was given throughout the procedure. Dissection proceeded down to the aponeurosis. Aponeurosis was opened in the direction of its fibers and extended to the external ring. The round ligament was mobilized and brought up. The ilioinguinal nerve was cut at musculature and removed. Preperitoneal adipose tissue was mobilized clamped and tied with 2-0 silk and divided. The round ligament and indirect hernia sac was further mobilized back to the internal ring. It was clamped and suture-ligated with a 2-0 silk. The remainder of the round ligament was removed with cautery. Polypropylene mesh was then cut to size and without tails. It was secured to the pubic tubercle along the shelving border of Poupart's ligament and medially along the musculature fascia of the internal oblique. Multiple interrupted 0 Ethibond sutures were used. The mesh lay in good position without tension. Aponeurosis was closed with a running 2-0 Vicryl suture. Liliana's was closed with interrupted 3-0 Vicryl suture. Buried interrupted subdermal 3-0 Vicryl sutures were then placed. Skin was closed with a running 4-0 Monocryl subcuticular suture. Dressing was applied. She tolerated the procedure very well.
== END 2023-02-09 09:53 | disposition home or self-care (01) ==
LOC: SDS 09:52
PROVIDERS: ATTEND Surgery
DX: K40.90 Unilateral inguinal hernia, without obstruction or gangrene, not specified as recurrent (principal); J45.909 Unspecified asthma, uncomplicated
CPT/HCPCS: 49505; C1781; J7120

== ENCOUNTER 2023-03-29 13:56 | Outpatient (CLI) | payer MEDICARE, MEDICAID ==
--- NOTE | 2023-03-29 15:07 | XRAY Report ---
PROCEDURE: Foot 3 View LT INDICATIONS: LT FOOT PAIN TECHNIQUE: 3 views of the foot were acquired. COMPARISON: None. FINDINGS: Bones: No fractures acute or dislocations. No suspicious bony lesions. There is a mild splenic appe arance between the second and third proximal phalanx. Prominent first TMT arthritic narrowing is pres ent. Scattered IP degenerative narrowing is present. Soft tissues: No suspicious soft tissue calcifications or masses. IMPRESSION: Arthritic narrowing as above. Reviewed by: Myra Benites MD on 03/29/2023 3:06 PM PDT Approved by: Myra Benites MD on 03/29/2023 3:06 PM PDT Station ID: [id number]
== END 2023-03-29 13:57 | disposition home or self-care (01) ==
LOC: DI 13:56
PROVIDERS: ATTEND Podiatrist
DX: M19.072 Primary osteoarthritis, left ankle and foot (principal)

== ENCOUNTER 2024-01-31 12:53 | Outpatient (CLI) | payer MEDICARE, MEDICAID ==
--- NOTE | 2024-01-31 15:14 | DEXA Report ---
PROCEDURE: Dexa Spine and/or Hip INDICATIONS: POSTMENOPAUSAL TECHNIQUE: Dual energy x-ray absorptiometry (DXA) was performed on a [employer] System. Regions measur ed are the AP Spine, femoral neck, and if needed forearm. COMPARISON: None. FINDINGS: Lumbar Spine: Bone Mineral Density: 1.092 g/cm/cm,T score: -0.7. Left Femoral Neck: Bone Mineral Density: 0.913 g/cm/cm, T score: -0.9. Left Hip: Bone Mineral Density: 0.900 g/cm/cm,T score: -0.9. FRAX risk factors: None given. 10 year risk of major osteoporotic fracture: Not calculated% major osteoporotic fracture = hip, clinical vertebral, proximal humerus, distal forearm 10 year risk of hip fracture: Calculated% (T score greater or equal to -1.0: NORMAL) (T score from -1.1 to -2.4: OSTEOPENIA) (T score less than or equal to -2.5 to: OSTEOPOROSIS) Impression: By WHO criteria, this patient has normal bone mineral density Patients with diagnosis of osteoporosis or osteopenia should have regular bone mineral density assess ment. For those eligible for Medicare, routine testing is allowed once every 2 years. Testing frequ ency can be increased for patients who have rapidly progressing disease or for those who are receivin g medical therapy to restore bone mass. Reviewed by: Hugo Jiménez MD on 01/31/2024 3:13 PM PDT Approved by: Hugo Jiménez MD on 01/31/2024 3:13 PM PDT Station ID: [id number]
== END 2024-01-31 12:54 | disposition home or self-care (01) ==
LOC: DI 12:53
PROVIDERS: ATTEND Nurse Practitioner Family
DX: Z78.0 Asymptomatic menopausal state (principal)